=== PATIENT | female | born 1965 | race Caucasian/White ===

== ENCOUNTER 2016-11-02 14:22 | Emergency (ER) | payer MEDICAID, OTHER ==
[~2016-11-02] VITALS: Ht 172.7 cm; Wt 130.0 kg
[~2016-11-02 14:22] MED LIST: AMBI5TAB PO; IBUP400T20 PO; IRON18TA2 PO; LISI20 PO; MACR100C PO; PAXI10TA PO; TYLE500T PO
[2016-11-02 14:24] VITALS: BP 186/90; PULSE 67; RESP 20; TEMP 97.7; O2SAT 99
[2016-11-02 15:01] LABS: BACTERIA, URINE MOD /hpf; BLOOD, URINE SMALL (NEG); COMMENT (UR) CULTURE INDICATED; CULTURE IF INDICATED CULTURE INDICATED; GLUCOSE,URINE NEG (NEG); KETONE, URINE NEG (NEG); MUCUS URINE FEW /lpf (OCC); SQUAMOUS EPITHELIAL CELL URINE <1 /hpf (0-5); URINE COLOR YELLOW (YELLW/STRAW)
[2016-11-02 15:02] LABS: NITRITE,URINE POS (NEG)
--- NOTE | 2016-11-02 15:15 | PD ---
HPI Chief Complaint: Dizziness Time Seen by Provider: 15:07 Travel History International Travel<30 days: No Contact w/Intl Traveler<30days: No Traveled to known affect area: No History of Present Illness HPI 51-year-old female who reports a history of hypertension, anxiety, iron deficiency anemia, presents for evaluation of dizziness, lightheadedness and headache. Symptoms have been ongoing for 1 week. She describes it as a generalized pressure in her head which is constant with associated lightheadedness that is worse when she moves her head. She reports that she feels like she is going to pass out sometimes but has not passed out. Associated with anxiety. She does endorse dysuria which she says is chronic in started in March 2016. Denies abdominal pain, chest pain, shortness of breath , blurred vision, flank pain, fevers or chills. She has no other complaints. PFSH Past Medical History Hx Anticoagulant Therapy: No Arthritis: Yes Blood Disorders: No Anxiety: Yes Depression: Yes Heart Rhythm Problems: No Cancer: No Cardiovascular Problems: Yes (HTN) High Cholesterol: No Chemotherapy: No Chest Pain: No Congestive Heart Failure: No Cerebrovascular Accident: No Diabetes: No Diminished Hearing: No Endocrine: No Gastrointestinal Disorders: Yes (hx gastric sleeve) GERD: Yes Genitourinary: No Hypertension: Yes Immune Disorder: No Musculoskeletal: Yes (spinal stenosis (lumbar), degenerative disc disease ( lumbar)) Neurologic: No Psychiatric: Yes Reproductive: No Respiratory: No Myocardial Infarction: No Radiation Therapy: No ?: Not Past Surgical History Abdominal Surgery: Yes (GASTRIC SURGERY) AICD: No Arteriovenous Shunt: No Section: Yes (98) Cholecystectomy: Yes Gynecologic Surgery: Yes Hysterectomy: No Insulin Pump: No Joint Replacement: No Pacemaker: No Other Surgery: Yes Social History Alcohol Use: No Tobacco Use: No (quit 3 years ago) Substance Use: No (marijuana occassionally) Allergies-Medications (Allergen,Severity, Reaction): Coded Allergies: No Known Allergies (Verified , 04/15/16) Reported Meds & Prescriptions Reported Meds & Active Scripts Active Pyridium (Phenazopyridine HCl) 100 Mg Tab 100 Mg PO Q8H PRN 2 Days Lisinopril 10 Mg Tab 10 Mg PO DAILY Bactrim DS (Sulfamethoxazole-Trimethoprim) 800-160 Mg Tab 1 Tab PO BID Reported Aspirin 81 Mg Tabdr 81 Mg PO DAILY Ferrous Sulfate 325 Mg Tab 325 Mg PO DAILY Lisinopril 5 Mg Tab 5 Mg PO DAILY Zoloft (Sertraline HCl) 100 Mg Tab 100 Mg PO DAILY Review of Systems Except as stated in HPI: all other systems reviewed are Neg Physical Exam Narrative GENERAL: Well-developed well-nourished female in no acute distress SKIN: Warm and dry. HEAD: Atraumatic. Normocephalic. EYES: Pupils equal and round. No scleral icterus. No injection or drainage. ENT: No nasal bleeding or discharge. Mucous membranes pink and moist. NECK: Trachea midline. No JVD. CARDIOVASCULAR: Regular rate and rhythm. No murmur appreciated. RESPIRATORY: No accessory muscle use. Clear to auscultation. Breath sounds equal bilaterally. GASTROINTESTINAL: Abdomen soft, non-tender, nondistended. Hepatic and splenic margins not palpable. MUSCULOSKELETAL: No obvious deformities. No edema NEUROLOGICAL: Awake and alert. No obvious cranial nerve deficits. Motor grossly within normal limits. Normal speech. PSYCHIATRIC: Appropriate mood and affect; insight and judgment normal. Data Data Last Documented VS Vital Signs Date Time Temp Pulse Resp B/P Pulse Ox O2 Delivery O2 Flow Rate FiO2 11/02/16 16:31 66 18 135/65 100 Room Air 11/02/16 14:24 97.7 Orders Urinalysis - C+S If Indicated (11/02/16 14:39) Urine Culture (11/02/16 14:45) Electrocardiogram (11/02/16 15:11) Basic Metabolic Panel (Bmp) (11/02/16 15:11) Complete Blood Count With Diff (11/02/16 15:11) Magnesium (Mg) (11/02/16 15:11) Ct Brain W/O Iv Contrast(Rout) (11/02/16 15:11) Ceftriaxone Inj (Rocephin Inj) (11/02/16 17:45) Labs Laboratory Tests Test 11/02/16 11/02/16 14:45 15:40 Urine Color YELLOW Urine Turbidity HAZY Urine pH 6.0 Urine Specific [place] 1.015 Urine Protein TRACE mg/dL Urine Glucose (UA) NEG mg/dL Urine Ketones NEG mg/dL Urine Occult Blood SMALL Urine Nitrite POS Urine Bilirubin NEG Urine Urobilinogen LESS THAN 2.0 MG/DL Urine Leukocyte Esterase LARGE Urine RBC 4 /hpf Urine WBC /hpf Urine WBC Clumps RARE Urine Squamous Epithelial <1 /hpf Cells Urine Bacteria MOD /hpf Urine Mucus FEW /lpf Microscopic Urinalysis Comment CULTURE INDICATED White Blood Count 9.1 TH/MM3 Red Blood Count 5.05 MIL/MM3 Hemoglobin 13.3 GM/DL Hematocrit 41.6 % Mean Corpuscular Volume 82.3 FL Mean Corpuscular Hemoglobin 26.3 PG Mean Corpuscular Hemoglobin 32.0 % Concent Red Cell Distribution Width 17.4 % Platelet Count 326 TH/MM3 Mean Platelet Volume 8.4 FL Neutrophils (%) (Auto) 64.7 % Lymphocytes (%) (Auto) 27.6 % Monocytes (%) (Auto) 4.5 % Eosinophils (%) (Auto) 2.2 % Basophils (%) (Auto) 1.0 % Neutrophils # (Auto) 5.9 TH/MM3 Lymphocytes # (Auto) 2.5 TH/MM3 Monocytes # (Auto) 0.4 TH/MM3 Eosinophils # (Auto) 0.2 TH/MM3 Basophils # (Auto) 0.1 TH/MM3 CBC Comment DIFF FINAL Differential Comment Sodium Level 139 MEQ/L Potassium Level 3.9 MEQ/L Chloride Level 106 MEQ/L Carbon Dioxide Level 25.0 MEQ/L Anion Gap 8 MEQ/L Blood Urea Nitrogen 13 MG/DL Creatinine 0.77 MG/DL Estimat Glomerular Filtration 79 ML/MIN Rate Random Glucose 125 MG/DL Calcium Level 9.0 MG/DL Magnesium Level 2.3 MG/DL [facility] Medical Decision Making Medical Screen Exam Complete: Yes Emergency Medical Condition: Yes Medical Record Reviewed: Yes Differential Diagnosis Symptomatic anemia, orthostatic hypotension, electrolyte abnormality, arrhythmia , dehydration, sepsis, UTI Narrative Course 51-year-old female with history of iron deficiency anemia, hypertension presents with 1 week of headache, lightheadedness, presyncopal symptoms. She also endorses dysuria which has been ongoing since March 2016 and it appearsper chart review that she was treated for UTI in March with Macrobid. Cultures grow Escherichia coli. Patient was initially seen in triage where workup was initiated. She'll be moved to a medical bed when one becomes available. Scripts Phenazopyridine (Pyridium)100 Mg [id number] Mg PO Q8H PRN (DYSURIA) 2 Days Ref 0 Prov:Oscar Bethea MD 11/02/16 Lisinopril 10 Mg Tab10 Mg PO DAILY #30 TAB Ref 0 Prov:Oscar Bethea MD 11/02/16 Sulfamethoxazole-Trimethoprim (Bactrim DS)800-160 Mg Tab1 Tab PO BID #14 TAB Ref 0 Prov:Oscar Bethea MD 11/02/16 Manuel Mays Nov 02, 2016 15:15
--- NOTE | 2016-11-02 15:44 | RADRPT ---
EXAM DATE/TIME: 11/02/2016 15:25 [place] COMPARISON: No previous studies available for comparison. INDICATIONS : Headache, dizziness and general weakness. RADIATION DOSE: 45.26 CTDIvol (mGy) MEDICAL HISTORY : Hypertension. SURGICAL HISTORY : Gastric sleeve. ENCOUNTER: Initial ACUITY: 1 day PAIN SCALE: 6/10 LOCATION: cranial TECHNIQUE: Multiple contiguous axial images were obtained of the head. Using automated exposure control and adj ustment of the mA and/or kV according to patient size, radiation dose was kept as low as reasonably a chievable to obtain optimal diagnostic quality images. FINDINGS: CEREBRUM: The ventricles are normal for age. No evidence of midline shift, mass lesion, hemorrhage or acute in farction. No extra-axial fluid collections are seen. POSTERIOR FOSSA: The cerebellum and brainstem are intact. The 4th ventricle is midline. The cerebellopontine angle i s unremarkable. EXTRACRANIAL: The visualized portion of the orbits is intact. SKULL: The calvaria is intact. No evidence of skull fracture. CONCLUSION: No acute disease. Graeme Farias MD on November 02, 2016 at 15:42 Board Certified Radiologist. This report was verified electronically.
[2016-11-02 16:06] LABS: AUTOMATED NEUTROPHIL # 5.9 TH/MM3 (1.8-7.7); BASOPHIL # 0.1 TH/MM3 (0-0.2); EOSINOPHIL # 0.2 TH/MM3 (0-0.4); EOSINOPHIL % 2.2 % (0.0-4.0); HEMATOCRIT 41.6 % (35.0-46.0); HEMO FLAGS DIFF FINAL; LYMPH % 27.6 % (9.0-44.0); LYMPHOCYTE # 2.5 TH/MM3 (1.0-4.8); MEAN CELL VOLUME 82.3 FL (80.0-100.0); MEAN CORPUSCULAR HEMOGLOBIN 26.3 PG (27.0-34.0); MONO % 4.5 % (0.0-8.0); NEUT % 64.7 % (16.0-70.0); PLATELET COUNT 326 TH/MM3 (150-450); RED BLOOD COUNT 5.05 MIL/MM3 (4.00-5.30); RED CELL DISTRIBUTION WIDTH 17.4 % (11.6-17.2); WHITE BLOOD COUNT 9.1 TH/MM3 (4.0-11.0)
[2016-11-02 16:11] LABS: MAGNESIUM 2.3 MG/DL (1.5-2.5); POTASSIUM 3.9 MEQ/L (3.5-5.1)
[2016-11-02 16:31] VITALS: BP 135/65; PULSE 66; RESP 18; O2SAT 100
[2016-11-02] MEDS ORDERED: ASPI1TAB69 PO (16:37)
[2016-11-02] MEDS ORDERED: FERR325T PO (16:37)
[2016-11-02] MEDS ORDERED: LISI-519 PO (16:37)
[2016-11-02] MEDS ORDERED: ZOLO100T PO (16:37)
[2016-11-02] MEDS ORDERED: BACT800T5 PO (17:43)
[2016-11-02] MEDS ORDERED: PHEN0.4T PO (17:43)
[2016-11-02] MEDS ORDERED: LISI10TA3 PO (17:43)
--- NOTE | 2016-11-02 17:43 | PD ---
Physical Exam Date Seen by Provider: Nov 02, 2016 Time Seen by Provider: 17:36 Narrative The patient is a 51-year-old female was initially evaluated in triage by the physician assistant site manager. Please refer to the initial history, physical, diagnostic evaluation, treatment modality plan. Data Data Last Documented VS Vital Signs Date Time Temp Pulse Resp B/P Pulse Ox O2 Delivery O2 Flow Rate FiO2 11/02/16 16:31 66 18 135/65 100 Room Air 11/02/16 14:24 97.7 Orders Urinalysis - C+S If Indicated (11/02/16 14:39) Urine Culture (11/02/16 14:45) Electrocardiogram (11/02/16 15:11) Basic Metabolic Panel (Bmp) (11/02/16 15:11) Complete Blood Count With Diff (11/02/16 15:11) Magnesium (Mg) (11/02/16 15:11) Ct Brain W/O Iv Contrast(Rout) (11/02/16 15:11) Ceftriaxone Inj (Rocephin Inj) (11/02/16 17:45) Labs Laboratory Tests Test 11/02/16 11/02/16 14:45 15:40 Urine Color YELLOW Urine Turbidity HAZY Urine pH 6.0 Urine Specific [place] 1.015 Urine Protein TRACE mg/dL Urine Glucose (UA) NEG mg/dL Urine Ketones NEG mg/dL Urine Occult Blood SMALL Urine Nitrite POS Urine Bilirubin NEG Urine Urobilinogen LESS THAN 2.0 MG/DL Urine Leukocyte Esterase LARGE Urine RBC 4 /hpf Urine WBC /hpf Urine WBC Clumps RARE Urine Squamous Epithelial <1 /hpf Cells Urine Bacteria MOD /hpf Urine Mucus FEW /lpf Microscopic Urinalysis Comment CULTURE INDICATED White Blood Count 9.1 TH/MM3 Red Blood Count 5.05 MIL/MM3 Hemoglobin 13.3 GM/DL Hematocrit 41.6 % Mean Corpuscular Volume 82.3 FL Mean Corpuscular Hemoglobin 26.3 PG Mean Corpuscular Hemoglobin 32.0 % Concent Red Cell Distribution Width 17.4 % Platelet Count 326 TH/MM3 Mean Platelet Volume 8.4 FL Neutrophils (%) (Auto) 64.7 % Lymphocytes (%) (Auto) 27.6 % Monocytes (%) (Auto) 4.5 % Eosinophils (%) (Auto) 2.2 % Basophils (%) (Auto) 1.0 % Neutrophils # (Auto) 5.9 TH/MM3 Lymphocytes # (Auto) 2.5 TH/MM3 Monocytes # (Auto) 0.4 TH/MM3 Eosinophils # (Auto) 0.2 TH/MM3 Basophils # (Auto) 0.1 TH/MM3 CBC Comment DIFF FINAL Differential Comment Sodium Level 139 MEQ/L Potassium Level 3.9 MEQ/L Chloride Level 106 MEQ/L Carbon Dioxide Level 25.0 MEQ/L Anion Gap 8 MEQ/L Blood Urea Nitrogen 13 MG/DL Creatinine 0.77 MG/DL Estimat Glomerular Filtration 79 ML/MIN Rate Random Glucose 125 MG/DL Calcium Level 9.0 MG/DL Magnesium Level 2.3 MG/DL [facility] Medical Record Reviewed: Yes Supervised Visit with KRISTINA: Yes Interpretation(s) EKG reveals normal sinus rhythm with a rate of 66. Low QRS voltage precordial leads. No ischemic changes noted. Last Impressions Head CT 11/02/16 1511 Signed Impressions: Service Date/Time: , November 02, 2016 15:25 - CONCLUSION: No acute disease. Graeme Farias MD Laboratory Tests Test 11/02/16 11/02/16 14:45 15:40 Urine Color YELLOW Urine Turbidity HAZY Urine pH 6.0 Urine Specific [place] 1.015 Urine Protein TRACE mg/dL Urine Glucose (UA) NEG mg/dL Urine Ketones NEG mg/dL Urine Occult Blood SMALL Urine Nitrite POS Urine Bilirubin NEG Urine Urobilinogen LESS THAN 2.0 MG/DL Urine Leukocyte Esterase LARGE Urine RBC 4 /hpf Urine WBC /hpf Urine WBC Clumps RARE Urine Squamous Epithelial <1 /hpf Cells Urine Bacteria MOD /hpf Urine Mucus FEW /lpf Microscopic Urinalysis Comment CULTURE INDICATED White Blood Count 9.1 TH/MM3 Red Blood Count 5.05 MIL/MM3 Hemoglobin 13.3 GM/DL Hematocrit 41.6 % Mean Corpuscular Volume 82.3 FL Mean Corpuscular Hemoglobin 26.3 PG Mean Corpuscular Hemoglobin 32.0 % Concent Red Cell Distribution Width 17.4 % Platelet Count 326 TH/MM3 Mean Platelet Volume 8.4 FL Neutrophils (%) (Auto) 64.7 % Lymphocytes (%) (Auto) 27.6 % Monocytes (%) (Auto) 4.5 % Eosinophils (%) (Auto) 2.2 % Basophils (%) (Auto) 1.0 % Neutrophils # (Auto) 5.9 TH/MM3 Lymphocytes # (Auto) 2.5 TH/MM3 Monocytes # (Auto) 0.4 TH/MM3 Eosinophils # (Auto) 0.2 TH/MM3 Basophils # (Auto) 0.1 TH/MM3 CBC Comment DIFF FINAL Differential Comment Sodium Level 139 MEQ/L Potassium Level 3.9 MEQ/L Chloride Level 106 MEQ/L Carbon Dioxide Level 25.0 MEQ/L Anion Gap 8 MEQ/L Blood Urea Nitrogen 13 MG/DL Creatinine 0.77 MG/DL Estimat Glomerular Filtration 79 ML/MIN Rate Random Glucose 125 MG/DL Calcium Level 9.0 MG/DL Magnesium Level 2.3 MG/DL Differential Diagnosis Differential diagnosis includes UTI, pyelonephritis, hypertension, intracranial hemorrhage, hyponatremia, medication side effect, dehydration. Narrative Course I, Dr. Bethea, have reviewed the advance practice practitioner's documentation and am in agreement, met with the patient face to face, made the diagnosis, and the medical decision making was done by me. *My assessment and Findings: The patient is a 51-year-old female who states she has had urinary symptoms since March with continuing burning, discomfort in the urethra, frequency, urgency, and was treated once by her previous physician , Dr. Smith. The patient is currently changing physicians, just obtain [facility] insurance, and has an appointment in the future with Dr. Parsons. The patient also complains of intermittent lightheadedness and dizziness. The patient states she ran out of her blood pressure medication, lisinopril 10 mg, one month ago and also ran out of her Paxil. The patient was out of her Paxil for 2 weeks and is started taking Zoloft 100 mg samples that she had. The patient denies any chest pain or shortness of breath. The patient believes her blood pressure is elevated at work and this may be resulting in her symptoms. The patient's physical examination does reveal mild right CVA tenderness and suprapubic discomfort, neurologic exam is unremarkable , and patient is nonfocal on exam. Patient's UA does reveal innumerable WBCs consistent with infection. Therefore, patient was administered Rocephin 1 g intravenously. The patient will be treated with Bactrim twice a day, Pyridium, and placed back on her lisinopril. The patient will be provided a copy of everything that was performed in the emergency department for follow-up with her physician. Hemoglobin is back to normal ranges at 13.3, she has been taking iron supplements since her previous anemia. CT the brain is negative and EKG was unremarkable. Diagnosis Primary Impression: UTI (urinary tract infection) Qualified Code: N30.00 - Acute cystitis without hematuria Additional Impression: Hypertension Qualified Code: I10 - Essential hypertension Patient Instructions: General Instructions Additional Instruction: Medications as directed. Follow-up with her primary physician. Please provide the patient a copy of her EKG, CT results, and lab results at discharge. Return if symptoms worsen or progress. Med/Other Pt SpecificInfo: Prescription(s) given Scripts Phenazopyridine (Pyridium)100 Mg [id number] Mg PO Q8H PRN (DYSURIA) 2 Days Ref 0 Prov:Oscar Bethea MD 11/02/16 Lisinopril 10 Mg Tab10 Mg PO DAILY #30 TAB Ref 0 Prov:Oscar Bethea MD 11/02/16 Sulfamethoxazole-Trimethoprim (Bactrim DS)800-160 Mg Tab1 Tab PO BID #14 TAB Ref 0 Prov:Oscar Bethea MD 11/02/16 Disposition: 01 DISCHARGE HOME Condition: Stable Oscar Bethea MD Nov 02, 2016 17:43
[2016-11-02] MEDS ORDERED: cefTRIAXone INJ 1,000 MG in SODIUM CHLORIDE 0.9% INJ 100 ML IV ONE (17:45)
--- NOTE | 2016-11-03 15:21 | EKG ---
Date Performed: 11/02/2016 Time Performed: 15:52:13 PTAGE: 51 years EKG: Sinus rhythm LOW QRS VOLTAGE IN PRECORDIAL LEADS BORDERLINE ECG PREVIOUS TRACING : 09/06/2015 17.13 Compared to prior tracing no significant change DOCTOR: Kaylene Solis Interpretating Date/Time 11/03/2016 15:21:01
== END 2016-11-02 18:52 | disposition home or self-care (01) ==
LOC: NEPA 14:22
DX: N39.0 Urinary tract infection, site not specified (principal); I10 Essential (primary) hypertension; R51 Headache; R42 Dizziness and giddiness; R94.31 Abnormal electrocardiogram [ECG] [EKG]; B96.20 Unspecified Escherichia coli [E. coli] as the cause of diseases classified elsewhere; D50.9 Iron deficiency anemia, unspecified; Z87.891 Personal history of nicotine dependence
CPT/HCPCS: 70450; 80048; 81001; 83735; 85025; 87077; 87086; 87186; 93005; 96365; 99285; J0696